=== PATIENT | male | born 2000 | race Two or more races ===

== ENCOUNTER 2024-11-19 12:39 | Outpatient (CLI) | payer OTHER | END 2024-11-19 12:45 | disposition home or self-care (01) | LOC: SONOGRAMA 12:39 | PROVIDERS: ATTEND Internal Medicine Hematology & Oncology | DX: E03.8 Other specified hypothyroidism (principal); D69.6 Thrombocytopenia, unspecified; E04.2 Nontoxic multinodular goiter ==

== ENCOUNTER 2024-11-21 08:30 | Outpatient (CLI) | payer OTHER ==
[2024-11-21 09:45] LABS: HEMATOCRIT 47.6 % (39.0-48.0); HEMOGLOBIN 15.7 g/dL (13-16.00); MEAN CORPUSCULAR HEMOGLOBIN 28.4 pg (27.00-32.0); MEAN CORPUSCULAR HGB CONC 33.1 g/dl (32.0-36.0); PLATELET COUNT 129 K/uL (150-450); RED BLOOD COUNT 5.54 M/uL (4.00-6.00)
[2024-11-21 10:47] LABS: % SATURACION 55.3 % (20-50); ALBUMIN 4.3 gm/dL (3.4-5.0); BILIRUBIN TOTAL 0.76 mg/dL (0.3-1.2); CALCIUM 9.7 mg/dL (8.5-10.1); CREATININE SERUM 0.93 mg/dL (0.70-1.30); FERRITIN 78.6 NG/ML (26-388); GFR 98.21; GLOBULINA 3.2 G/DL (2.4-3.5); POTASSIUM 4.17 mEq/L (3.5-5.1); T4 FREE 0.94 NG/ML (0.76-1.46); TOTAL PROTEIN 7.5 gm/dL (6.4-8.2); TSH 1.15 uIU/mL (0.358-3.74)
[2024-11-21 11:18] LABS: FOLIC ACID > 20.00 ng/ml (4.78-20)
[2024-11-22 12:24] LABS: MANUAL PLATELET COUNT 170
[2024-11-22 12:26] LABS: PLATELET ESTIMATE NORMAL (NORMAL)
[2024-11-24 18:08] LABS: INTRINSIC FACTOR BLOCKING AB 1.2 AU/mL (0.0-1.1)
== END 2024-11-21 08:31 | disposition home or self-care (01) ==
LOC: LAB 08:30
PROVIDERS: ATTEND Internal Medicine Hematology & Oncology
DX: D50.8 Other iron deficiency anemias (principal); R79.9 Abnormal finding of blood chemistry, unspecified; I10 Essential (primary) hypertension; R74.02 Elevation of levels of lactic acid dehydrogenase [LDH]; K76.89 Other specified diseases of liver; D51.1 Vitamin B12 deficiency anemia due to selective vitamin B12 malabsorption with proteinuria; E03.8 Other specified hypothyroidism; E06.3 Autoimmune thyroiditis; D69.6 Thrombocytopenia, unspecified

== ENCOUNTER 2025-04-14 08:59 | Outpatient (CLI) | payer OTHER ==
[2025-04-14 10:01] LABS: BASO % 1.1 % (0.1-1.2); EOS # 0.34 (0.04-0.54); EOS % 7.5 % (0.7-7.0); HEMATOCRIT 48.6 % (40.1-51.0); HEMOGLOBIN 15.7 g/dL (13.7-17.5); LYMPH # 1.43 (1.18-3.74); LYMPH % 31.7 % (19.3-53.1); MEAN CORPUSCULAR HEMOGLOBIN 27.4 pg (25.6-32.2); MONO # 0.46 (0.24-0.82); MONO % 10.2 % (4.7-12.5); NEUT # 2.22 (1.56-6.13); NEUT % 49.3 % (34.0-71.1); PLATELET COUNT 156 K/uL (163-369); RED BLOOD COUNT 5.72 M/uL (4.63-6.08); RED CELL DISTRIBUTION WIDTH 13.2 % (11.6-14.4)
[2025-04-14 10:54] LABS: % SATURACION 34.1 % (20-50); ALBUMIN 4.3 gm/dL (3.4-5.0); BILIRUBIN TOTAL 0.53 mg/dL (0.3-1.2); CALCIUM 9.4 mg/dL (8.5-10.1); CREATININE SERUM 0.92 mg/dL (0.70-1.30); FERRITIN 72.2 NG/ML (26-388); GFR 98.69; POTASSIUM 4.03 mEq/L (3.5-5.1); TOTAL PROTEIN 7.3 gm/dL (6.4-8.2)
[2025-04-14 11:42] LABS: FOLIC ACID 18.61 ng/ml (4.78-20)
[2025-04-16 13:08] LABS: PARIETAL CELL ANTIBODIES 1.6 Units (0.0-20.0)
== END 2025-04-14 09:15 | disposition home or self-care (01) ==
LOC: LAB 08:59
PROVIDERS: ATTEND Internal Medicine Hematology & Oncology
DX: D72.818 Other decreased white blood cell count (principal); D69.6 Thrombocytopenia, unspecified; D51.0 Vitamin B12 deficiency anemia due to intrinsic factor deficiency; E03.8 Other specified hypothyroidism; E04.9 Nontoxic goiter, unspecified; L80 Vitiligo; D50.8 Other iron deficiency anemias; R79.9 Abnormal finding of blood chemistry, unspecified; I10 Essential (primary) hypertension; R74.02 Elevation of levels of lactic acid dehydrogenase [LDH]; K76.89 Other specified diseases of liver; D51.1 Vitamin B12 deficiency anemia due to selective vitamin B12 malabsorption with proteinuria